=== PATIENT | male | born 1990 | race African-American/Black ===

== ENCOUNTER 2018-09-05 00:37 | Emergency (ER) | payer OTHER ==
[2018-09-05 00:57] VITALS: BP 145/78
[2018-09-05] MEDS ORDERED: LIDOCAINE 1% INJ-PF (10 MG/ML) 30 ML SDV INJ ONE ×2 (03:47→06:30)
[2018-09-05] MEDS ORDERED: AMOXICILLIN TR/POT CLAVULANATE 500-125 MG TAB PO ONE ×2 (03:48→06:30)
[2018-09-05] MEDS ORDERED: AMOXICILLIN TRIHYDRATE 500 MG CAPSULE PO ONE ×2 (03:48→06:30)
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
== END 2018-09-05 08:11 | disposition home or self-care (01) ==
LOC: ER 00:37
DX: S01.511A Laceration without foreign body of lip, initial encounter (principal); Y04.0XXA Assault by unarmed brawl or fight, initial encounter
CPT/HCPCS: 99282; 12011; J3490

== ENCOUNTER 2018-09-09 06:44 | Day surgery (SDC) | payer OTHER ==
[~2018-09-09 06:44] MED LIST: CEFAZOLIN 2 GM/D5W RTU 2 GM/50 ML RTUPB IV PRN; DEXAMETHASONE SOD PHOSPHATE INJ 4 MG/1 ML VIAL ONE; FENTANYL CITRATE INJ/PF 100 MCG/2 ML AMPUL ONE; FENTANYL CITRATE INJ/PF 250 MCG/5 ML AMPULE ONE; MIDAZOLAM 2 MG/2 ML INJ ONE; ONDANSETRON HCL INJ/PF 4 MG/2 ML SDV ONE; PROPOFOL INJ 200 MG/20 ML VIAL IV ONE
[2018-09-09] MEDS ORDERED: CEFAZOLIN 2 GM/D5W RTU 2 GM/50 ML RTUPB IV ONE (06:51)
[2018-09-09] MEDS ORDERED: ALBUTEROL SULFATE 0.083% NEB 2.5 MG/3 ML AMPUL NEB ONE (07:44)
[2018-09-09] MEDS ORDERED: BUPIVACAINE HCL 0.5 % INJ/PF 30 ML SDV ONE (08:41)
[2018-09-09 08:51] LABS: HEMATOCRIT 40.4 % (37.9-51.0); HEMOGLOBIN 13.6 g/dL (13.5-17.0); MEAN CORPUSCULAR HEMOGLOBIN 26.5 pg (27.0-33.4); MEAN CORPUSCULAR HGB CONC 33.7 g/dL (32.0-36.0); MEAN CORPUSCULAR VOLUME 79 fl (80-97); PLATELET COUNT 221 10^3/uL (150-450); RED BLOOD COUNT 5.14 10^6/uL (4.35-5.55); RED CELL DISTRIBUTION WIDTH 13.2 % (11.5-14.0); WHITE BLOOD COUNT 3.7 10^3/uL (4.0-10.5)
[2018-09-09] MEDS ORDERED: MEPERIDINE HCL/PF INJ 25 MG/1 ML DISP.SYRIN IV PRN (09:51)
[2018-09-09] MEDS ORDERED: FENTANYL CITRATE INJ/PF 100 MCG/2 ML AMPUL IV PRN ×3 (09:51)
[2018-09-09] MEDS ORDERED: ONDANSETRON HCL INJ/PF 4 MG/2 ML SDV IV PRN (09:51)
[2018-09-09] MEDS ORDERED: MORPHINE SULFATE 10 MG/ML INJ IV PRN (09:51)
[2018-09-09] MEDS ORDERED: PROMETHAZINE HCL INJ 25 MG/1 ML VIAL IV PRN ×2 (09:51)
[2018-09-09] MEDS ORDERED: DIPHENHYDRAMINE HCL 50 MG/ML VIAL IV PRN (09:51)
[2018-09-09] MEDS ORDERED: KETOROLAC TROMETHAMINE 60 MG/2 ML SDV ONE (12:16)
[2018-09-09] MEDS ORDERED: SUCCINYLCHOLINE CHLORIDE INJ 200 MG/10 ML VIAL ONE (12:16)
[2018-09-09] MEDS ORDERED: ROPIVACAINE HCL 0.5% INJ/PF (5 MG/1 ML) 30 ML SDV ONE (12:19)
[2018-09-09] MEDS ORDERED: LIDOCAINE 2%/EPINEPHRINE INJ 20 ML VIAL ONE (12:19)
[2018-09-09] MEDS ORDERED: LIDOCAINE 2% INJ (20 MG/ML) 20 ML MDV ONE (12:19)
[2018-09-09] MEDS ORDERED: MEPERIDINE HCL/PF INJ 25 MG/1 ML DISP.SYRIN ONE (12:41)
[2018-09-09] MEDS ORDERED: OXYCODONE-ACETAMINOPHEN 5-325 MG TABLET PO PRN (13:05)
[2018-09-09] MEDS ORDERED: ONDANSETRON HCL 8 MG TABLET PO PRN (13:06)
--- NOTE | 2018-09-09 13:09 | RADIOLOGY REPORT (SQ) ---
EXAM DESCRIPTION: HAND LEFT 2 VIEWS; NO CHG FLUORO COMPLETED DATE/TIME: 09/09/2018 12:34 pm REASON FOR STUDY: HAND RECONSTRUCTION IN OR S62.325A DISP FX OF SHAFT OF FOURTH METACARPAL BONE, LE FT MCLAIN S63.055A DISLOCATION OF OTH CARPOMETACARPAL JOINT OF LEFT MCLAIN S66.395S INJ EXTN MUSC/FASC/TEND L RNG FNGR AT WRS/HND LV, S COMPARISON: None. FLUOROSCOPY TIME: 25 seconds. 5 images saved to PACS. TECHNIQUE: Intra-operative images acquired during surgical procedure to evaluate progress. NUMBER OF IMAGES: 5 images. LIMITATIONS: None. FINDINGS: Images of the hand were acquired during the surgical procedure. IMPRESSION: IMAGE(S) OBTAINED DURING PROCEDURE. COMMENT: Quality ID 145: Final reports for procedures using fluoroscopy that document radiation exp osure indices, or exposure time and number of fluorographic images (if radiation exposure indices are not available) Please consult full operative report of the attending physician for description of the procedure. TECHNICAL DOCUMENTATION: JOB ID: [id number] [employer]- All Rights Reserved Reading location - IP/workstation name: [email or web address]
--- NOTE | 2018-09-09 13:09 | RADIOLOGY REPORT (SQ) ---
EXAM DESCRIPTION: HAND LEFT 2 VIEWS; NO CHG FLUORO COMPLETED DATE/TIME: 09/09/2018 12:34 pm REASON FOR STUDY: HAND RECONSTRUCTION IN OR S62.325A DISP FX OF SHAFT OF FOURTH METACARPAL BONE, LE FT MCLAIN S63.055A DISLOCATION OF OTH CARPOMETACARPAL JOINT OF LEFT MCLAIN S66.395S INJ EXTN MUSC/FASC/TEND L RNG FNGR AT WRS/HND LV, S COMPARISON: None. FLUOROSCOPY TIME: 25 seconds. 5 images saved to PACS. TECHNIQUE: Intra-operative images acquired during surgical procedure to evaluate progress. NUMBER OF IMAGES: 5 images. LIMITATIONS: None. FINDINGS: Images of the hand were acquired during the surgical procedure. IMPRESSION: IMAGE(S) OBTAINED DURING PROCEDURE. COMMENT: Quality ID 145: Final reports for procedures using fluoroscopy that document radiation exp osure indices, or exposure time and number of fluorographic images (if radiation exposure indices are not available) Please consult full operative report of the attending physician for description of the procedure. TECHNICAL DOCUMENTATION: JOB ID: [id number] [employer]- All Rights Reserved Reading location - IP/workstation name: [email or web address]
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
[2018-09-09 15:18] VITALS: BP 149/87
== END 2018-09-09 15:25 | disposition home or self-care (01) ==
LOC: OROUT 06:44
PROVIDERS: ATTEND Orthopaedic Surgery
DX: S62.325A Displaced fracture of shaft of fourth metacarpal bone, left hand, initial encounter for closed fracture (principal); S63.055A Dislocation of other carpometacarpal joint of left hand, initial encounter; S66.395 Other injury of extensor muscle, fascia and tendon of left ring finger at wrist and hand level; W34.00XA Accidental discharge from unspecified firearms or gun, initial encounter
CPT/HCPCS: 36415; 85027; 73120; 26615; 26685 ×2; 26497; 20900; C1713 ×6; J2795; J2250; J3490 ×3; J1100; J1885; J3010 ×2; J2175; J0330; J2405; J2704; J0690; 01830

== ENCOUNTER 2019-01-20 06:56 | Day surgery (SDC) | payer OTHER ==
[~2019-01-20 06:56] MED LIST changes: -CEFAZOLIN 2 GM/D5W RTU 2 GM/50 ML RTUPB IV PRN; +CEFAZOLIN SODIUM 2 GM in DEXTROSE 5%-WATER 100 ML IV PRN; -DEXAMETHASONE SOD PHOSPHATE INJ 4 MG/1 ML VIAL ONE; -FENTANYL CITRATE INJ/PF 100 MCG/2 ML AMPUL ONE; -FENTANYL CITRATE INJ/PF 250 MCG/5 ML AMPULE ONE; -MIDAZOLAM 2 MG/2 ML INJ ONE; -ONDANSETRON HCL INJ/PF 4 MG/2 ML SDV ONE; -PROPOFOL INJ 200 MG/20 ML VIAL IV ONE
[2019-01-20] MEDS ORDERED: BUPIVACAINE HCL 0.5 % INJ/PF 30 ML SDV ONE (07:30)
[2019-01-20] MEDS ORDERED: FENTANYL CITRATE INJ/PF 100 MCG/2 ML AMPUL ONE (09:00)
[2019-01-20] MEDS ORDERED: PROPOFOL INJ 200 MG/20 ML VIAL IV ONE ×2 (09:01→10:43)
[2019-01-20] MEDS ORDERED: MIDAZOLAM 2 MG/2 ML INJ ONE (09:01)
[2019-01-20] MEDS ORDERED: HYDROMORPHONE HCL INJ/PF 2 MG/ML AMPULE ONE (09:01)
[2019-01-20] MEDS ORDERED: PROMETHAZINE HCL INJ 25 MG/1 ML VIAL IV PRN ×2 (10:10)
[2019-01-20] MEDS ORDERED: FENTANYL CITRATE INJ/PF 100 MCG/2 ML AMPUL IV PRN ×3 (10:10)
[2019-01-20] MEDS ORDERED: HYDROMORPHONE HCL INJ/PF 2 MG/ML AMPULE IV PRN (10:10)
[2019-01-20] MEDS ORDERED: DIPHENHYDRAMINE HCL 50 MG/ML VIAL IV PRN (10:10)
[2019-01-20] MEDS ORDERED: MEPERIDINE HCL/PF INJ 25 MG/1 ML DISP.SYRIN IV PRN (10:10)
[2019-01-20] MEDS ORDERED: ONDANSETRON HCL INJ/PF 4 MG/2 ML SDV ONE (10:22)
[2019-01-20] MEDS ORDERED: GLYCOPYRROLATE 1 MG/5 ML VIAL ONE (10:22)
[2019-01-20] MEDS ORDERED: PHENYLEPHRINE HCL INJ/PF 10 MG/1 ML SDV ONE (10:22)
[2019-01-20] MEDS ORDERED: LIDOCAINE 2% INJ-PF (20 MG/ML) 2 ML AMPUL ONE (10:22)
[2019-01-20] MEDS ORDERED: KETOROLAC TROMETHAMINE 60 MG/2 ML SDV ONE (10:22)
[2019-01-20] MEDS ORDERED: DEXAMETHASONE SOD PHOSPHATE INJ 4 MG/1 ML VIAL ONE (10:22)
[2019-01-20] MEDS: MEPERIDINE HCL/PF INJ 25 MG/1 ML DISP.SYRIN ONE ×2 (10:43→10:48)
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
[2019-01-20] MEDS ORDERED: OXYCODONE-ACETAMINOPHEN 5-325 MG TABLET PO PRN (11:00)
[2019-01-20] MEDS ORDERED: ONDANSETRON HCL 8 MG TABLET PO PRN (11:38)
[2019-01-20 12:54] VITALS: BP 131/78
== END 2019-01-20 12:30 | disposition home or self-care (01) ==
LOC: OROUT 06:56
PROVIDERS: ATTEND Orthopaedic Surgery
DX: M25.642 Stiffness of left hand, not elsewhere classified (principal); S62.325D Displaced fracture of shaft of fourth metacarpal bone, left hand, subsequent encounter for fracture with routine healing; S63.055D Dislocation of other carpometacarpal joint of left hand, subsequent encounter; S66.395 Other injury of extensor muscle, fascia and tendon of left ring finger at wrist and hand level; W32.0XXD Accidental handgun discharge, subsequent encounter
CPT/HCPCS: 01830; 26525 ×2; 26445 ×2; 26340 ×2; J2250; J3490 ×3; J0690; J1100; J1885; J3010; J2175; J1170; J2370; J2405; J7060; J2704; 1830

== ENCOUNTER 2019-02-19 16:02 | Emergency (ER) | payer OTHER ==
[2019-02-19 16:14] VITALS: BP 147/77
[2019-02-19] MEDS ORDERED: HYDROCODONE/ACETAMINOPHEN 5-325 MG TABLET PO ONE (16:23)
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
--- NOTE | 2019-02-19 17:14 | RADIOLOGY REPORT (SQ) ---
EXAM DESCRIPTION: HAND LEFT 3 VIEWS COMPLETED DATE/TIME: 02/19/2019 4:53 pm REASON FOR STUDY: left thumb pain COMPARISON: 09/09/2018. EXAM PARAMETERS: NUMBER OF VIEWS: Three views. TECHNIQUE: AP, lateral and oblique radiographic images acquired of the left hand. LIMITATIONS: None. FINDINGS: MINERALIZATION: Normal. BONES: No acute fracture or dislocation. Chronic deformity of the 4th metacarpal. No worrisome bone lesions. JOINTS: Mild asymmetry/subluxation of the MCP joint of the thumb. SOFT TISSUES: No soft tissue swelling. Metallic density adjacent to the 4th metacarpal. OTHER: No other significant finding. IMPRESSION: 1. MILD ASYMMETRY/ SUBLUXATION OF THE MCP JOINT OF THE THUMB. NO FRACTURE VISUALIZED. THIS MAY BE D UE TO LIGAMENTOUS INJURY. 2. CHRONIC DEFORMITY OF THE 4TH METACARPAL. TECHNICAL DOCUMENTATION: JOB ID: [id number] [employer]- All Rights Reserved Reading location - IP/workstation name: [email or web address]
--- NOTE | 2019-02-19 17:15 | RADIOLOGY REPORT (SQ) ---
EXAM DESCRIPTION: ANKLE LEFT COMPLETE COMPLETED DATE/TIME: 02/19/2019 4:53 pm REASON FOR STUDY: left lateral ankle pain COMPARISON: None. NUMBER OF VIEWS: Three views. TECHNIQUE: AP, lateral, and oblique radiographic images acquired of the left ankle. LIMITATIONS: None. FINDINGS: MINERALIZATION: Normal. BONES: No acute fracture or dislocation. No worrisome bone lesions. JOINTS: No effusions. SOFT TISSUES: No soft tissue swelling. No foreign body. OTHER: No other significant finding. IMPRESSION: NEGATIVE STUDY OF THE LEFT ANKLE. NO RADIOGRAPHIC EVIDENCE OF ACUTE INJURY. TECHNICAL DOCUMENTATION: JOB ID: [id number] [email or web address]- All Rights Reserved Reading location - IP/workstation name: [email or web address]
--- NOTE | 2019-02-19 17:16 | RADIOLOGY REPORT (SQ) ---
EXAM DESCRIPTION: HAND RIGHT 3 VIEWS COMPLETED DATE/TIME: 02/19/2019 4:53 pm REASON FOR STUDY: right wrist swelling, + deformity COMPARISON: None. EXAM PARAMETERS: NUMBER OF VIEWS: Three views. TECHNIQUE: AP, lateral and oblique radiographic images acquired of the right hand. LIMITATIONS: None. FINDINGS: MINERALIZATION: Normal. BONES: No acute fracture or dislocation. No worrisome bone lesions. JOINTS: No effusions. SOFT TISSUES: No soft tissue swelling. No foreign body. OTHER: No other significant finding. IMPRESSION: NEGATIVE STUDY OF THE RIGHT HAND. NO RADIOGRAPHIC EVIDENCE OF ACUTE INJURY. TECHNICAL DOCUMENTATION: JOB ID: [id number] [employer]- All Rights Reserved Reading location - IP/workstation name: [email or web address]
--- NOTE | 2019-02-19 17:17 | RADIOLOGY REPORT (SQ) ---
EXAM DESCRIPTION: WRIST RIGHT 3 VIEWS COMPLETED DATE/TIME: 02/19/2019 4:53 pm REASON FOR STUDY: right wrist swelling, + deformity COMPARISON: None. NUMBER OF VIEWS: Three views. TECHNIQUE: AP, lateral, and oblique radiographic images acquired of the right wrist. LIMITATIONS: None. FINDINGS: MINERALIZATION: Normal. BONES: Linear longitudinal radiolucency in the distal radius. No worrisome bone lesions. Normal ali gnment. SOFT TISSUES: No soft tissue swelling. No foreign body. OTHER: No other significant finding. IMPRESSION: NONDISPLACED FRACTURE OF THE DISTAL RADIUS. TECHNICAL DOCUMENTATION: JOB ID: [id number] [email or web address]- All Rights Reserved Reading location - IP/workstation name: [email or web address]
[2019-02-19] MEDS ORDERED: IBUPROFEN 800 MG TABLET PO ONE (17:41)
[2019-02-19] MEDS ORDERED: HYDROCODONE/ACETAMINOPHEN 5-325 MG (6 TAB/ER DISP) PO PRN (17:57)
== END 2019-02-19 18:23 | disposition home or self-care (01) ==
LOC: ER 16:02
PROC: 2W3CX1Z Immobilization of Right Lower Arm using Splint (ICD-10-PCS; principal; 2019-02-19)
PROC: 2W3HX1Z Immobilization of Left Thumb using Splint (ICD-10-PCS; 2019-02-19)
DX: S52.501A Unspecified fracture of the lower end of right radius, initial encounter for closed fracture (principal); S93.402A Sprain of unspecified ligament of left ankle, initial encounter; M79.645 Pain in left finger(s); M25.572 Pain in left ankle and joints of left foot; M79.672 Pain in left foot; M25.531 Pain in right wrist; M79.89 Other specified soft tissue disorders; X58.XXXA Exposure to other specified factors, initial encounter
CPT/HCPCS: 99283